=== PATIENT | female | born 2000 | race Caucasian/White ===

== ENCOUNTER 2020-12-08 23:23 | Emergency (ER) | payer SELFPAY ==
[2020-12-08] MEDS ORDERED: diphenhydrAMINE 50 MG/ML VIAL ONE (23:31)
[2020-12-08] MEDS ORDERED: Acetaminophen 500 MG TAB ONE (23:31)
[2020-12-08] MEDS ORDERED: Metoclopramide 10 MG/10 ML UDCUP ONE (23:31)
[2020-12-08] MEDS ORDERED: Metoclopramide HCl 10 MG/2 ML VIAL ONE (23:32)
== END 2020-12-09 01:49 | disposition home or self-care (01) ==
LOC: ERS 23:23
DX: R51.9 Headache, unspecified (principal)
CPT/HCPCS: 70450; 96365; 96375; J1200; J2765

== ENCOUNTER 2022-01-02 18:07 | Emergency (ER) | payer SELFPAY ==
[2022-01-02] MEDS ORDERED: diphenhydrAMINE 50 MG/ML VIAL ONE (20:00)
[2022-01-02] MEDS ORDERED: Dexamethasone 4 mg/ml Vial ONE (20:00)
[2022-01-02] MEDS ORDERED: Ketorolac Tromethamine 30 MG/ML VIAL ONE (20:00)
[2022-01-02 20:04] LABS: #Basophils 0.1 thou/uL (0.0-0.2); #Eosinphils 0.3 thou/uL (0.0-0.7); #Monocytes 0.4 thou/uL (0.11-0.59); #Neutrophils 3.9 thou/uL (1.40-6.50); %Basophils 0.8 % (0.0-1.0); %Eosinophils 4.5 % (0.0-10.0); %Lymphocytes 38.6 % (21.0-51.0); %Monocytes 5.6 % (0.0-10.0); %Neutrophils 50.5 % (42.0-75.0); Hemoglobin 12.6 g/dL (12.0-16.0); Mean Corpuscular HGB CONC 34.2 g/dL (32.0-36.0); Mean Corpuscular Hemoglobin 30.9 pg (27.0-31.0); Mean Corpuscular Volume 90.4 fL (78.0-98.0); Platelet Count 196 thou/uL (130-400); RBC Distribution Width 12.4 % (11.5-14.5); Red Blood Cell (RBC) Count 4.07 mill/uL (4.20-5.40); White Blood Cell (WBC) Count 7.7 thou/uL (4.8-10.8)
[2022-01-02 20:13] LABS: BHCG - Serum Negative (NEGATIVE); Pregs Control Background? CLEAR/WHITE (CLR/WHITE); Pregs Control Bar Appear? YES (CONTROL BAR)
[2022-01-02 20:27] LABS: ALT (SGPT) 9 U/L (8-55); AST (SGOT) 19 U/L (5-34); Albumin 4.2 g/dL (3.5-5.0); Alkaline Phosphatase 81 U/L (40-110); Anion Gap 16 mmol/L (10-20); BUN (Urea Nitrogen) 8 mg/dL (7.0-18.7); Bilirubin, Total 0.3 mg/dL (0.2-1.2); Calc. Creatinine Clearance 0 mL/min (70-130); Calcium 9.1 mg/dL (7.8-10.44); Carbon Dioxide 21 mmol/L (22-29); Chloride 106 mmol/L (98-107); Estimated GFR 120; Glucose 91 mg/dL (70-105); Potassium 3.5 mmol/L (3.5-5.1); Protein, Total 7.2 g/dL (6.0-8.3); Sodium 139 mmol/L (136-145)
[2022-01-02] MEDS ORDERED: Metoclopramide HCl 10 MG/2 ML VIAL ONE (20:36)
== END 2022-01-02 22:20 | disposition home or self-care (01) ==
LOC: ERS 18:07
DX: G43.909 Migraine, unspecified, not intractable, without status migrainosus (principal)
CPT/HCPCS: 36415; 80053; 84703; 85025; 96361; 96365; 96375; J1100; J1200; J1885; J2765